=== PATIENT | male | born 1985 ===

== ENCOUNTER 2019-10-02 15:42 | Emergency (ER) | payer BC, SELFPAY ==
[2019-10-02 15:49] VITALS: BP 148/84; PULSE 92; RESP 16; TEMP 37.1; O2SAT 97
--- NOTE | 2019-10-02 16:05 | W.ED.GENAD ---
Discharge Plan Disposition Patient Disposition: HOME Discharge Details Chief Complaint: Laceration Clinical Impression: Abrasion of skin Primary Care Provider: Mackenzie,Local ED Provider: Renaldo Lee Home Meds and New Rx's Prescriptions: New cephalexin [Keflex] 500 mg capsule 500 mg PO QID 7 Days Qty: 28 RF: 0 Continued allopurinol 100 mg Tablet 200 mg PO DAILY RF: 0 zinc 50 mg Tablet 50 mg PO DAILY RF: 0 cholecalciferol (vitamin D3) [Vitamin D3] 25 mcg (1,000 unit) Capsule 25 mcg PO DAILY RF: 0 colchicine 0.6 mg Capsule 0.6 mg PO DAILY PRNRF: 0 Discharge Instructions Instructions: Laceration (ED) Additional Instructions: At this time unfortunately the laceration is not amendable to sutures. This will require gradual healing, from the inside out. Please continue applying triple antibiotic ointment 2-3 times per day, gently wash the area 2-3 times a day with warm soapy water. Bandage it regularly and keep water from getting to up. If you notice any redness, drainage, fever or chills return immediately for reassessment. If you notice any worsening of your symptoms, or any new symptoms such as vomiting, diarrhea, fever, chills, shortness of breath, chest pain, numbness, weakness, or fainting , please return immediately to the emergency department for reevaluation. Please follow up with your primary care provider as soon as possible for reassessment and reevaluation. As always, it was a pleasure participating in your medical care today. Discharge Data Discharge Date/Time-TO BE ENTERED AT DEPARTURE: 10/02/19 16:13 Medical Decision Making 34-year-old -[place] male with no significant past medical history whose tetanus is up-to-date within the last 5 years presents today for evaluation of laceration to his right knee. Patient was working at a friend's house when he fell on some gravel, cut his right knee just below the patella. He cleaned the wound himself, washed and bandaged and came in for further evaluation. He denies any associated numbness or tingling. He denies any significant pain in the knee itself. No pain with ambulation. No other complaints at this time. He is currently visiting from out of town. Physical exam demonstrates an abrasion to the right knee, no evidence of tissue removal secondary to said abrasion. Skin itself is superficial for what is been removed, no evidence of deep laceration, or deep involvement whatsoever. Unfortunately secondary to the nature of the wound it is not amendable to stitching as it is both on the extensor surface, and consistent with skin removal from the abrasion rather than actual laceration. As the site is not amendable to suturing, we will recommend continued wound cleaning techniques, bandaging, and general healing through secondary intention. Tetanus is up-to-date. We will start the patient on antibiotic as a precaution secondary to the nature/mechanism of the injury. I have extensively reviewed the treatment plan and discharge instructions with the patient. I have addressed all patient concerns at this time. The patient was made aware of what symptoms to monitor for that would warrant a return to the emergency department. Discussed the plan with the patient, they demonstrate verbal understanding and agreement with our assessment and plan at this time. Additionally the patient is able to ambulate well without any pain, knee exam is otherwise unremarkable and inconsistent with fracture or ligamentous injury. Patient would like to hold off on any imaging at this time. HPI General Date/Time Provider Initiated Documentation: 10/02/19 15:54. HPI Narrative: 34-year-old -[place] male with no significant past medical history whose tetanus is up-to-date within the last 5 years presents today for evaluation of laceration to his right knee. Patient was working at a friend's house when he fell on some gravel, cut his right knee just below the patella. He cleaned the wound himself, washed and bandaged and came in for further evaluation. He denies any associated numbness or tingling. He denies any significant pain in the knee itself. No pain with ambulation. No other complaints at this time. He is currently visiting from out of town. Related Data Home Medications Medication Instructions Recorded Confirmed allopurinol 200 mg PO DAILY 10/02/19 10/02/19 cephalexin [Keflex] 500 mg PO QID 7 Days #28 cap 10/02/19 cholecalciferol (vitamin D3) 25 mcg PO DAILY 10/02/19 10/02/19 [Vitamin D3] colchicine 0.6 mg PO DAILY PRN 10/02/19 10/02/19 zinc 50 mg PO DAILY 10/02/19 10/02/19 Previous Rx's Medication Instructions Recorded cephalexin [Keflex] 500 mg PO QID 7 Days #28 cap 10/02/19 Allergies Allergy/AdvReac Type Severity Reaction Status Date / Time No Known Allergies Allergy Unverified 10/02/19 15:48 General Stated Complaint: Laceration KARLI: 4 Review of Systems All systems reviewed & are unremarkable except as noted in HPI and below PFSH Social History Smoking/Tobacco Use Status: Never Alcohol Intake: current Alcohol Intake frequency: a few times a week Drug use: Occasionally Substance use type: marijuana Do you feel safe at home: Yes Do you feel safe in your relationship?: Yes Exam Narrative Exam Narrative: 1.Const: Well-nourished, Well-developed, appearing stated age 2.Eyes: PERRL, no conjunctival injection, and symmetrical lids. 3.ENT: Atraumatic external nose and ears. Moist MM. Neck: Symmetric, trachea midline, No thyromegaly. 4.CVS: +S1/S2, No murmurs or gallops. Peripheral pulses 2+ and equal in all extremities. Brisk capillary refill in all extremities. 5.RESP: Unlabored respiratory effort. Clear to auscultation bilaterally. No wheezes rales or rhonchi 6.GI: Soft, Nontender/Nondistended, No hepatosplenomegaly. No guarding or rebound. 7.MSK: Normocephalic, Extremities w/o deformity or ttp No cyanosis or clubbing, Normal movement of all extremities. Right knee: The knee is stable to varus, valgus, and anterior drawer stress. No deformity. Patellar grind test is negative. Milana test is negative for pain. Patient is able to walk without difficulty. No edema or warmth to the joint. No ttp to the patella, tibial plateau, or fibular head. 8.Skin: Warm, Dry. Patient does demonstrate evidence of mild abrasion to the medial aspect of the right knee just below the patella over the tibial plateau, there is also evidence of a secondary tissue trauma site, with a distance/length of 3 cm and a width of 1.5 cm. It appears that the skin in this area was notably removed and the patient states that he did cut and pluck it off. No evidence of retained foreign bodies otherwise. Site appears consistent with tissue removal rather than actual laceration. It is also over the extensor surface. 9.Neuro: population health manager II-XII grossly intact. Sensation grossly intact, no focal neurologic deficits. 10.Psych: (AAO) x3. Appropriate mood and affect Course Vital Signs Vital signs: Vital Signs Temperature 37.1 C 10/02/19 15:49 Pulse 92 H 10/02/19 15:49 Respiratory Rate 16 10/02/19 15:49 Blood Pressure 148/84 H 10/02/19 15:49 Pulse Oximetry 97 10/02/19 15:49 Temperature 37.1 C 10/02/19 15:49 Temperature Source Temporal Artery Scan 10/02/19 15:49 Pulse 92 H 10/02/19 15:49 Respiratory Rate 16 10/02/19 15:49 Respiratory Effort Non-Labored 10/02/19 15:53 Blood Pressure 148/84 H 10/02/19 15:49 Blood Pressure Position Sitting 10/02/19 15:49 Pulse Oximetry 97 10/02/19 15:49 Oxygen Delivery Method Room Air 10/02/19 15:49 Oxygen Flow Rate 0 10/02/19 15:49 Pain Level 5 10/02/19 15:49
[2019-10-02 16:11] VITALS: BP 148/84; PULSE 92; RESP 16; TEMP 37.1; O2SAT 97
== END 2019-10-02 16:13 | disposition home or self-care (01) ==
LOC: ER 16:24
PROVIDERS: Emergency Provider Student in an Organized Health Care Education/Training Program
DX: S81.012A Laceration without foreign body, left knee, initial encounter (principal); W18.39XA Other fall on same level, initial encounter; Y93.E6 Activity, residential relocation
CPT/HCPCS: 99283